=== PATIENT | female | born 1990 | race African-American/Black ===

== ENCOUNTER → 2017-06-09 | Outpatient (CLI) | payer OTHER ==
[~2017-06-09] MED LIST: ACYC-223 PO; IBUP-103 PO
--- NOTE | 2017-06-09 07:34 | DIAGNOSTIC IMAGING REPORT ---
RENAL ULTRASOUND CLINICAL HISTORY: Urinary urgency. Urgent incontinence. COMPARISON STUDY: None. TECHNIQUE: Sonography of the kidneys and the urinary bladder was performed. FINDINGS: The right kidney measures 10.2 x 3.6 x 5.3 cm and the left kidney measures 10.3 x 6.3 x 6.4 cm. There is no hydronephrosis. Renal echogenicity, size and cortical thickness are normal. Neither ureteral jet was identified. No renal masses or calculi are identified by sonography. IMPRESSION: Normal renal ultrasound. No hydronephrosis. Electronically signed by: Reese Jose M.D. 06/09/2017 7:32 AM Dictated Date/Time: 06/09/2017 7:31 AM
== END | disposition home or self-care (01) ==
LOC: C.ULTR 06:36
PROVIDERS: ATTEND Urology
DX: R30.0 Dysuria (principal); N39.41 Urge incontinence; R39.15 Urgency of urination